=== PATIENT | female | born 1985 | race Caucasian/White ===

== ENCOUNTER 2023-07-27 11:49 | Emergency (ER) | payer OTHER, SELFPAY ==
[2023-07-27 11:57] VITALS: BP 128/65; PULSE 88; RESP 14; TEMP 37.3; O2SAT 98
[2023-07-27 12:06] VITALS: BP 128/65; PULSE 88; RESP 14; TEMP 37.3; O2SAT 98
--- NOTE | 2023-07-27 12:28 | ED.URI ---
HPI - URI/Sore Throat General Chief Complaint: Upper Respiratory Infection Stated Complaint: Sore Throat Time Seen by Provider: 07/27/23 12:20 Source: patient, RN notes reviewed and old records reviewed Mode of arrival: ambulatory Limitations: no limitations History of Present Illness HPI Narrative: 38-year-old female who presents to [facility] with complaints of sore throat, with some cough, and low-grade fevers, voice raspy for 6 days. Patient reports that her son was treated for tonsillitis in recent past with negative strep test. Patient reports that she has taken Mucinex and NyQuil. Patient reports that cough is now productive of greenish tinged phlegm, denies any shortness of breath. MD elicited complaint: fever (low grade), cough and sore throat Onset (ago): day(s) (6-7 days) Pain scale (0-10): 5 Treatments prior to arrival: other (Mucinex, NyQuil) Related Data Allergies Allergy/AdvReac Type Severity Reaction Status Date / Time No Known Allergies Allergy Verified 07/27/23 11:51 Review of Systems Review of Systems: CONSTITUTIONAL:reports malaise, chills, sweats, or fever. EYES: Denies visual changes, redness, or discharge. ENT: Reports rhinorrhea, congestion, no sinus pain, no otalgia and positive forsore throat. CARDIOVASCULAR: Denies chest pain, palpitations, or edema. RESPIRATORY: Reports cough.? Denies dyspnea. GASTROINTESTINAL: Denies abdominal pain, nausea, vomiting, diarrhea SKIN: Denies rash or itching. MUSCULOSKELETAL: Denies myalgia. NEUROLOGIC: Denies headache. All systems reviewed & are unremarkable except as noted in HPI and below PMFSH Surgical History Surgical History (Updated 07/29/23 @ 08:00 by Yazmin Guthrie NP) Previous section Social History Social History (Updated 07/29/23 @ 08:01 by Yazmin Guthrie NP) Smoking status: Never smoker Alcohol intake: unknown Substance use type: does not use Living arrangements: with family Gender identity (if verbalized by the patient): Female Comments At time of signature, agree with nursing past medical, surgical, social and family history. There is no relevant family history pertinent to the presenting complaint Exam Narrative: GENERAL: Well-appearing, well-nourished, and in no acute distress. HEAD: Normocephalic EYES: PERRLA, conjunctivae clear ENT: Nares clear, turbinates edematous and erythematous, clear discharge. Mucous membranes moist. TM pearly alberts with dull light reflex bilaterally; no tragal tenderness. Oropharynx erythematous without lesions. Tonsils not enlarged and without exudate, no drooling, no hoarseness, no trismus, uvula midline.post nasal drainage. NECK: Supple. lymphadenopathy CHEST: Clear to auscultation, breath sounds equal. No wheezing, rhonchi, rales, or stridor. No respiratory distress, speaks in full sentences.productive cough,SAO2 98% on room air HEART: Regular rate and rhythm. No murmur heard. SKIN: Warm, dry, no rash. NEURO: Alert and oriented x3. PSYCH: Normal mood and affect Course Course Emergency Course: Patient is aware of diagnosis, understands and agrees to treatment plan.? Anticipatory guidance given.? Patient agrees to follow-up as directed and is aware of reasons to seek care at the emergency department. Portions of this record may have been created with voice recognition software Level of Care: Express Care Visit Vital Signs Vital signs: Vital Signs Temperature 37.3 C 07/27/23 11:57 Pulse Rate 88 07/27/23 11:57 Respiratory Rate 14 07/27/23 11:57 Blood Pressure 128/65 07/27/23 11:57 Pulse Oximetry 98 07/27/23 11:57 Oxygen Delivery Room Air 07/27/23 11:57 Temperature 37.3 C 07/27/23 12:06 Pulse Rate 88 07/27/23 12:06 Respiratory Rate 14 07/27/23 12:06 Blood Pressure 128/65 07/27/23 12:06 Pulse Oximetry 98 07/27/23 12:06 Oxygen Delivery Room Air 07/27/23 12:06 Reviewed MDM - URI/Sorsherman Th
== END 2023-07-27 12:44 | disposition home or self-care (01) ==
PROVIDERS: Emergency Provider Registered Nurse
DX: J06.9 Acute upper respiratory infection, unspecified (principal); R05.9 Cough, unspecified
CPT/HCPCS: 87081; 87880; 99213; G0463